=== PATIENT | male | born 1955 | race Caucasian/White ===

== ENCOUNTER 2017-04-23 09:41 | Emergency (ER) | payer BC ==
[~2017-04-23] VITALS: Ht 172.7 cm; Wt 108.8 kg
[~2017-04-23 09:41] MED LIST: ASPCH81 PO; LPT40 PO; LSN40 PO; NRV5 PO
[2017-04-23 09:58] VITALS: Ht 172.7 cm; Wt 108.8 kg
[2017-04-23] MEDS ORDERED: STR10 PO (10:17)
[2017-04-23] MEDS ORDERED: ASPI81TA28 PO (10:17)
[2017-04-23] MEDS ORDERED: [UNRECOGNIZED DRUG - CODE] (10:17)
[2017-04-23 10:35] LABS: BASO % 0.2 %; BASO ABS # 0.02 K/uL (0-0.2); COMPLETE YES; EOS % 1.5 %; HEMATOCRIT 41.3 % (42-52); IG% 0.2 %; LYMPH % 8.4 %; LYMPH ABS # 1.09 K/uL (1.2-3.4); MEAN CELL VOLUME 91.8 fL (80-100); MEAN CORPUSCULAR HEMOGLOBIN 31.1 pg (25-34); MEAN CORPUSCULAR HGB CONC 33.9 g/dl (32-36); MEAN PLATELET VOLUME 10.3 fL (7.4-10.4); MONO % 12.4 %; NEUT % 77.3 %; PLATELET COUNT 144 K/uL (130-400); WHITE BLOOD COUNT 12.97 K/uL (4.8-10.8)
[2017-04-23] MEDS ORDERED: SODIUM CHLORIDE 0.9% 1000ML 1,000 ML IV STA (10:50)
[2017-04-23 10:58] LABS: BUN/CREATININE RATIO 14.4 (10-20); CALCIUM 9.3 mg/dl (8.5-10.1); CREATININE 1.7 mg/dl (0.60-1.40); POTASSIUM 3.4 mmol/L (3.5-5.1)
[2017-04-23] MEDS ORDERED: OPTIRAY 320 IV PRN (11:00)
[2017-04-23 11:32] LABS: URINE APPEARANCE CLEAR (CLEAR); URINE BILIRUBIN NEG (NEG); URINE COLOR YELLOW; URINE EPITHELIAL CELL AUTO 0-5 /lpf (0-5); URINE NITRITE NEG (NEG); URINE SPECIFIC GRAVITY 1.021 (1.000-1.030); UROBILINOGEN NEG (NEG); ZZUR CULT IF INDIC CLEAN CATCH YES
[2017-04-23 11:33] LABS: MANUAL MICROSCOPIC REQUIRED? NO; REVIEW REQ? NO
--- NOTE | 2017-04-23 12:34 | DIAGNOSTIC IMAGING REPORT ---
ABD/PELVIS IV CONTRAST ONLY HISTORY: 61 years-old Male abd pain w/o BM and vomiting COMPARISON: Lumbar spine radiographs 11/15/2015 TECHNIQUE: Multiple axial CT images of the abdomen and pelvis were obtained following the intravenous administration of 93 mL Optiray 320. A dose lowering technique was used consistent with the principals of AVE. FINDINGS: Linear pleural-based groundglass opacities of the lung bases suggest atelectasis. There is no pneumoperitoneum. Coronary arterial calcifications are partially imaged. The liver, spleen, pancreas and adrenal glands appear normal. Gallbladder is partially contracted. There is a probable renal sinus cyst of the interpolar left kidney, 1.3 x 0.9 cm. Nonspecific fat stranding is seen within the perirenal spaces bilaterally without renal calculi or hydronephrosis. There is additional mild stranding adjacent to the distal left ureter and within the region of the prostate. Prostate is mildly enlarged, 4.9 cm transversely. Urinary bladder is within normal limits. There is moderate degree of atherosclerotic plaquing involving the abdominal aorta. Portal vein is patent. No pathologic adenopathy. Note is made of a retroaortic course of the left renal vein. There are a few scattered nonenlarged periesophageal lymph nodes at the level of the diaphragmatic hiatus measuring up to 7 x 6 mm which are nonspecific. There is no bowel obstruction. Scattered noninflamed appearing colonic diverticuli are present. Appendix appears normal. Soft tissues are within normal limits. Synovial herniation pit of the left femoral neck is noted. There is facet arthropathy of the lower lumbar spine which is at least moderate. IMPRESSION: 1. Mild fat stranding surrounds the distal left ureter and enlarged prostate without obstructing stone or obstructive uropathy identified. These findings may be secondary to a recently passed stone or infectious process. Correlate with urinalysis and possibly PSA level. 2. Colonic diverticulosis without diverticulitis. 3. Normal appendix. The above report was generated using voice recognition software. It may contain grammatical, syntax or spelling errors. Electronically signed by: Qasim Ambrose M.D. 04/23/2017 12:33 PM Dictated Date/Time: 04/23/2017 12:24 PM
[2017-04-23] MEDS ORDERED: CEFTRIAXONE SOD INJ 1 GM ADDVIAL IV STA (12:37)
[2017-04-23] MEDS ORDERED: CIPROFLOXACIN 500 MG TAB PO STA (12:49)
[2017-04-23] MEDS ORDERED: CIPR-255 PO (13:43)
[2017-04-23 14:03] VITALS: BP 136/87; PULSE 88; TEMP 36.7; O2SAT 97
--- NOTE | 2017-04-23 15:05 | EMERGENCY ROOM VISIT NOTE ---
History Report prepared by Amarilys: Faisal Neely Under the Supervision of: Dr. Dontrell Corral D.O. First contact with patient: 10:05 Chief Complaint: GI ASSESSMENT Stated Complaint: CAN'T URINATE,UNABLE TO MOVE BOWELS Nursing Triage Summary: "I have extreme distress trying to urinate and move my bowels. Started Sunday. " History of Present Illness The patient is a 61 year old male who presents to the Emergency Room with complaints of difficulty urinating and constipation that began Sunday evening 2.5 days prior to arrival. The patient notes that he first noticed that he was having difficulty urinating Sunday night, when he was unable to void normally. He notes it barrett when he urinates and he has been urinating much more frequently. He also has not had a normal bowel movement since 2199 evening. The patient states that he usually has 3 bowel movements per day. He also feels a "full" feeling in his epigastric abdomen. He did experience one vomiting episode as well. He has felt warm for the past 2 days, with associated chills and cold sweats. Denies any recorded fevers. He is also experiencing muscle aches and a headache. He is eating, but not as much as normally. The patient denies headache, change in vision, chest pain, shortness of breath, nausea, vomiting, diarrhea, and melena Source of History: patient Onset: 2.5 days prior to arrival Position: other (Gastrointestinal, genitourinary) Quality: other (Urinary irreg, constipation) Timing: constant Associated Symptoms: + fevers, + chills, + headache, + diaphoresis, + vomiting Review of Systems See HPI for pertinent positives & negatives. A total of 10 systems reviewed and were otherwise negative. Past Medical & Surgical Medical Problems: (1) Hypertension Family History Diabetes mellitus Hypertension Kidney disease Kidney stones Social History Smoking Status: Never Smoker Alcohol Use: occasionally Drug Use: none Marital Status: Occupation Status: employed Current/Historical Medications Scheduled Aspirin (Aspirin Ec), 81 MG PO DAILY Atomoxetine (Strattera), Unknown Dose PO DAILY Atorvastatin (Atorvastatin Calcium), 40 MG PO QAM Ciprofloxacin Hcl (Cipro), 500 MG PO BID Lisinopril (Lisinopril), 40 MG PO QAM Allergies Coded Allergies: Bumble Bee (Unverified Allergy, Severe, anaphylaxis, 04/23/17) Codeine (Verified Adverse Reaction, Intermediate, vomiting, 04/23/17) Physical Exam Vital Signs Date Time Temp Pulse Resp B/P (MAP) Pulse Ox O2 Delivery O2 Flow Rate FiO2 04/23/17 14:03 36.7 88 18 136/87 97 04/23/17 12:57 91 16 117/73 98 Room Air 04/23/17 09:58 37.1 87 16 129/78 94 Room Air Physical Exam GENERAL: Sitting up in bed, alert, well appearing, well nourished, no distress, non-toxic EYE EXAM: normal conjunctiva OROPHARYNX: no exudate, no erythema, lips, buccal mucosa, and tongue normal and mucous membranes are moist NECK: supple, no nuchal rigidity, no adenopathy, non-tender LUNGS: Clear to auscultation. Normal chest wall mechanics HEART: no murmurs, S1 normal and S2 normal ABDOMEN: abdomen soft, with minimal tenderness to the left abdomen, normo- active bowel sounds, no masses, no rebound or guarding. BACK: Back is symmetrical on inspection and there is no deformity, no midline tenderness, no CVA tenderness. SKIN: no rashes and no bruising UPPER EXTREMITIES: upper extremities are grossly normal. LOWER EXTREMITIES: No pitting edema. NEURO EXAM: Normal sensorium, cranial nerves II-XII grossly intact, normal speech, no gross weakness of arms, no gross weakness of legs. Medical Decision & Procedures ER Provider Diagnostic Interpretation: Radiology results as stated below per my review and the radiologist's interpretation: ABD/PELVIS IV CONTRAST ONLY HISTORY: 61 years-old Male abd pain w/o BM and vomiting COMPARISON: Lumbar spine radiographs 11/15/2015 TECHNIQUE: Multiple axial CT images of the abdomen and pelvis were obtained following the intravenous administration of 93 mL Optiray 320. A dose lowering technique was used consistent with the principals of ALARA. FINDINGS: Linear pleural-based groundglass opacities of the lung bases suggest atelectasis. There is no pneumoperitoneum. Coronary arterial calcifications are partially imaged. The liver, spleen, pancreas and adrenal glands appear normal. Gallbladder is partially contracted. There is a probable renal sinus cyst of the interpolar left kidney, 1.3 x 0.9 cm. Nonspecific fat stranding is seen within the perirenal spaces bilaterally without renal calculi or hydronephrosis. There is additional mild stranding adjacent to the distal left ureter and within the region of the prostate. Prostate is mildly enlarged, 4.9 cm transversely. Urinary bladder is within normal limits. There is moderate degree of atherosclerotic plaquing involving the abdominal aorta. Portal vein is patent. No pathologic adenopathy. Note is made of a retroaortic course of the left renal vein. There are a few scattered nonenlarged periesophageal lymph nodes at the level of the diaphragmatic hiatus measuring up to 7 x 6 mm which are nonspecific. There is no bowel obstruction. Scattered noninflamed appearing colonic diverticuli are present. Appendix appears normal. Soft tissues are within normal limits. Synovial herniation pit of the left femoral neck is noted. There is facet arthropathy of the lower lumbar spine which is at least moderate. IMPRESSION: 1. Mild fat stranding surrounds the distal left ureter and enlarged prostate without obstructing stone or obstructive uropathy identified. These findings may be secondary to a recently passed stone or infectious process. Correlate with urinalysis and possibly PSA level. 2. Colonic diverticulosis without diverticulitis. 3. Normal appendix. The above report was generated using voice recognition software. It may contain grammatical, syntax or spelling errors. Electronically signed by: Qasim Ambrose M.D. 04/23/2017 12:33 PM Dictated Date/Time: 04/23/2017 12:24 PM Laboratory Results 04/23/17 10:24 Red Blood Count 4.50, Mean Corpuscular Volume 91.8, Mean Corpuscular Hemoglobin 31.1, Mean Corpuscular Hemoglobin Concent 33.9, Mean Platelet Volume 10.3, Neutrophils (%) (Auto) 77.3, Lymphocytes (%) (Auto) 8.4, Monocytes (%) (Auto) 12.4, Eosinophils (%) (Auto) 1.5, Basophils (%) (Auto) 0.2, Neutrophils # (Auto ) 10.03, Lymphocytes # (Auto) 1.09, Monocytes # (Auto) 1.61, Eosinophils # (Auto ) 0.19, Basophils # (Auto) 0.02 04/23/17 10:24 Test 04/23/17 10:24 04/23/17 11:19 White Blood Count 12.97 K/uL (4.8-10.8) Red Blood Count 4.50 M/uL (4.7-6.1) Hemoglobin 14.0 g/dL (14.0-18.0) Hematocrit 41.3 % (42-52) Mean Corpuscular Volume 91.8 fL (80-100) Mean Corpuscular Hemoglobin 31.1 pg (25-34) Mean Corpuscular Hemoglobin Concent 33.9 g/dl (32-36) Platelet Count 144 K/uL (130-400) Mean Platelet Volume 10.3 fL (7.4-10.4) Neutrophils (%) (Auto) 77.3 % Lymphocytes (%) (Auto) 8.4 % Monocytes (%) (Auto) 12.4 % Eosinophils (%) (Auto) 1.5 % Basophils (%) (Auto) 0.2 % Neutrophils # (Auto) 10.03 K/uL (1.4-6.5) Lymphocytes # (Auto) 1.09 K/uL (1.2-3.4) Monocytes # (Auto) 1.61 K/uL (0.11-0.59) Eosinophils # (Auto) 0.19 K/uL (0-0.5) Basophils # (Auto) 0.02 K/uL (0-0.2) RDW Standard Deviation 46.8 fL (36.4-46.3) RDW Coefficient of Variation 13.9 % (11.5-14.5) Immature Granulocyte % (Auto) 0.2 % Immature Granulocyte # (Auto) 0.03 K/uL (0.00-0.02) Anion Gap 7.0 mmol/L (3-11) Est Creatinine Clear Calc Drug Dose 53.9 ml/min Estimated GFR () 49.0 Estimated GFR (Non- 42.3 BUN/Creatinine Ratio 14.4 (10-20) Calcium Level 9.3 mg/dl (8.5-10.1) Total Bilirubin 0.9 mg/dl (0.2-1) Direct Bilirubin 0.2 mg/dl (0-0.2) Aspartate Amino Transf (AST/SGOT) 13 U/L (15-37) Alanine Aminotransferase (ALT/SGPT) 24 U/L (12-78) Alkaline Phosphatase 62 U/L (45-117) Total Protein 7.5 gm/dl (6.4-8.2) Albumin 3.4 gm/dl (3.4-5.0) Lipase 93 U/L (73-393) Urine Color YELLOW Urine Appearance CLEAR (CLEAR) Urine pH 5.0 (4.5-7.5) Urine Specific [place] 1.021 (1.000-1.030) Urine Protein TRACE (NEG) Urine Glucose (UA) NEG (NEG) Urine Ketones NEG (NEG) Urine Occult Blood TRACE (NEG) Urine Nitrite NEG (NEG) Urine Bilirubin NEG (NEG) Urine Urobilinogen NEG (NEG) Urine Leukocyte Esterase MODERATE (NEG) Urine WBC (Auto) 10-30 /hpf (0-5) Urine RBC (Auto) 0-4 /hpf (0-4) Urine Hyaline Casts (Auto) 5-10 /lpf (0-5) Urine Epithelial Cells (Auto) 0-5 /lpf (0-5) Urine Bacteria (Auto) 1+ (NEG) Laboratory results per my review. Medications Administered Medications (Trade) Dose Ordered Sig/Claude Route Start Time Stop Time Status Last Admin Dose Admin Sodium Chloride 1,000 ml @ 999 mls/hr Q1H1M STAT IV 04/23/17 10:50 04/23/17 11:50 DC 04/23/17 10:50 999 MLS/HR Ceftriaxone Sodium (Rocephin Inj) 1 gm NOW STAT IV 04/23/17 12:37 04/23/17 12:38 DC 04/23/17 12:57 1 GM Ciprofloxacin (Cipro Tab) 500 mg NOW STAT PO 04/23/17 12:49 04/23/17 12:50 DC 04/23/17 12:56 500 MG ED Course ED COURSE: Vital signs were reviewed and showed normal vitals The patients medical record was reviewed The above diagnostic studies were performed and reviewed. ED treatments and interventions as stated above. 1031: The patient was evaluated in room B8. A complete history and physical examination was performed. 1050: Ordered Sodium Chloride 1000 mL @ 999 mL/hr IV. 1237: Ordered Rocephin 1 gm IV. 1240: I updated the patient at this time. He was resting in bed. 0150: Upon reevaluation, the patient is resting in bed.He denies being sexually active. I discussed my findings with the patient and he understands and agrees with the treatment plan. Based on the patients age, coexisting illnesses, exam and lab findings the decision to treat as an outpatient was made. The patient remained stable while under my care. The patient appeared well at the time of discharge. Medical Decision Differential diagnoses includes but is not limited to gastritis, peptic ulcer disease, GERD, gallbladder disease, pancreatitis, small bowel obstruction, acute coronary syndrome, pericarditis, ischemic bowel, irritable bowel disease, irritable bowel syndrome, appendicitis, diverticulitis, malignancy, hernia, urinary tract infection, torsion, perforation, trauma, infectious. Patient is a 61-year-old male who presents the ER for urinary frequency, urgency and dysuria. Patient denies being sexually active. He also complains of difficulty moving his bowels and one episode of vomiting. CT of abdomen and pelvis is unremarkable with the exception of mild stranding around left lower ureter. UA supports a UTI. He was given an IV dose of Rocephin. Fluids were given. Vitals were stable. Mild leukocytosis of 12,000. Creatinine was slightly elevated at 1.7 from baseline of 1.3. Patient was updated in regards to findings and discharged on Cipro with a UTI. Discussed with Pt concerning signs and symptoms to watch out for. Pt was instructed to follow up with their PCP and discussed with the patient their option to return to the ED at anytime for persistent or worsening symptoms. The appropriate anticipatory guidance and out-patient management, including indications for return to the emergency department, were explained at length to the patient and understood. Medication Reconcilliation Current Medication List: was personally reviewed by me Blood Pressure Screening Patient's blood pressure: Normal blood pressure Impression Primary Impression: UTI (urinary tract infection) Scribe Attestation The scribe's documentation has been prepared under my direction and personally reviewed by me in its entirety. I confirm that the note above accurately reflects all work, treatment, procedures, and medical decision making performed by me. Departure Information Dispostion Home / Self-Care Prescriptions Ciprofloxacin Hcl (CIPRO) 500 Mg Tab 500 MG PO BID, #20 TAB Prov: Dontrell Corral, 04/23/17 Referrals Jeremias Kelley MD (PCP) Forms HOME CARE DOCUMENTATION FORM, IMPORTANT VISIT INFORMATION Patient Instructions [facility] Additional Instructions Please follow up with your primary care doctor or if you are a student, [facility] with in the next 24 hours. Any worsening of your symptoms, please return to the ED immediately. This includes any fevers greater than 100.4, worsening pain, chest pain, shortness breath, persistent nausea, vomiting, unable to eat or drink, or any other concerning signs or symptoms from your standpoint. Please take your antibiotics as prescribed. Problem Qualifiers Primary Impression: UTI (urinary tract infection) Urinary tract infection type: acute cystitis Hematuria presence: with hematuria Qualified Codes: N30.01 - Acute cystitis with hematuria
== END 2017-04-23 14:04 | disposition home or self-care (01) ==
LOC: C.EDB 09:42
DX: N39.0 Urinary tract infection, site not specified (principal); I10 Essential (primary) hypertension; Z83.3 Family history of diabetes mellitus; Z82.49 Family history of ischemic heart disease and other diseases of the circulatory system; Z84.1 Family history of disorders of kidney and ureter; Z79.82 Long term (current) use of aspirin; Z79.899 Other long term (current) drug therapy

== ENCOUNTER → 2017-09-21 | Outpatient (CLI) | payer BC ==
[~2017-09-21] MED LIST changes: -ASPCH81 PO; +ASPI81TA28 PO; +CIPR-255 PO; -NRV5 PO; +STR10 PO
--- NOTE | 2017-09-21 11:35 | DIAGNOSTIC IMAGING REPORT ---
(RENAL)RETROPERITON COMP HISTORY: 62 years-old Male R33.9 Urinary [id number] Benign prostatic hyperplasia with u urinary retention COMPARISON: CT abdomen and pelvis 04/23/2017 TECHNIQUE: Multiple real-time sonographic images of the kidneys and urinary bladder were obtained assessing grayscale appearance and color flow FINDINGS: The right kidney measures 11.6 x 6.6 x 5.5 cm and demonstrates no renal calculi, hydronephrosis or focal renal mass lesions. Cortical medullary differentiation is preserved. Mild trabeculation of the urinary bladder wall. Bilateral ureteral jets documented. Left kidney is within normal limits without hydronephrosis, renal calculi or focal mass lesion. Left kidney measures up to 12.8 x 6.2 x 5.6 cm. IMPRESSION: 1. Unremarkable sonographic appearance of the bilateral kidneys without hydronephrosis or renal calculi. 2. Mild trabeculation of the urinary bladder molina. The above report was generated using voice recognition software. It may contain grammatical, syntax or spelling errors. Electronically signed by: Qasim Ambrose M.D. 09/21/2017 11:34 AM Dictated Date/Time: 09/21/2017 11:30 AM
== END | disposition home or self-care (01) ==
LOC: C.ULTR 10:36
PROVIDERS: ATTEND Urology
DX: N20.0 Calculus of kidney (principal); N40.1 Benign prostatic hyperplasia with lower urinary tract symptoms; R33.9 Retention of urine, unspecified

== ENCOUNTER → 2018-04-08 | Outpatient (CLI) | payer BC ==
[~2018-04-08] MED LIST changes: +LISI40TA3 PO; -LSN40 PO
== END | disposition home or self-care (01) ==
LOC: C.LAB1850 11:19
PROVIDERS: ATTEND Urology
DX: N20.0 Calculus of kidney (principal)